=== PATIENT | female | born 1965 | race Caucasian/White ===

== ENCOUNTER → 2016-09-11 | Outpatient (CLI) | payer BC ==
--- NOTE | 2016-09-11 10:53 | KCIC ---
Bone mineral density study dated 09/11/2016. Indication: Osteopenia. Postmenopausal screening.. Findings: Lower lumbar spine: BMD (g/cm2): Total L1-L4.......... 1.078. . T-Score: Total L1-L4.................... 0.3. Z-Score: Total L1-L4 ................... 1.0. Left Hip: BMD (g/cm2): Total .......... 0.973. . T-Score: Total .................... 0.3. Z-Score: Total ................... 0.7. World Health Organization criteria for BMD interpretation classify patients as Normal (T-score at or above -1.0), Osteopenic (T-score between -1.0 and -2.5), or Osteoporotic (T-score at or below -2.5). Impression: According to the World Health Organization, bone mineral density values within the lower lumbar spine and left femoral neck are within the range of normal. Electronically signed by: Fito Bloom MD (09/11/2016 10:50 AM) [id number]
== END | disposition home or self-care (01) ==
LOC: KCIC DEXA 08:38
PROVIDERS: ATTEND Podiatrist Foot & Ankle Surgery
DX: Z13.820 Encounter for screening for osteoporosis (principal); Z78.0 Asymptomatic menopausal state; M85.80 Other specified disorders of bone density and structure, unspecified site
CPT/HCPCS: 77080